=== PATIENT | female | born 1985 | race Caucasian/White ===

== ENCOUNTER 2022-05-01 23:07 | Emergency (ER) | payer BC ==
[2022-05-02] MEDS ORDERED: HYDROCODON-ACE1 EAC4 PO (01:13)
== END 2022-05-02 01:35 | disposition home or self-care (01) ==
LOC: ER1 23:07
DX: S52.132A Displaced fracture of neck of left radius, initial encounter for closed fracture (principal); S52.572A Other intraarticular fracture of lower end of left radius, initial encounter for closed fracture; I10 Essential (primary) hypertension; W01.0XXA Fall on same level from slipping, tripping and stumbling without subsequent striking against object, initial encounter; Y92.009 Unspecified place in unspecified non-institutional (private) residence as the place of occurrence of the external cause
CPT/HCPCS: 73080; 96374; 96375; 99283; J2270; J2405